=== PATIENT | male | born 1960 | race Caucasian/White ===

== ENCOUNTER 2017-06-09 16:52 | Observation (INO) | payer BC ==
[2017-06-11] MEDS ORDERED: HYDROCODON-ACE1 EAC4 PO (14:10)
== END 2017-06-10 13:10 | disposition home or self-care (01) ==
DX: K35.80 Unspecified acute appendicitis (principal); E88.2 Lipomatosis, not elsewhere classified; I10 Essential (primary) hypertension; Z79.899 Other long term (current) drug therapy